=== PATIENT | female | born 1985 | race Caucasian/White ===

== ENCOUNTER 2019-12-28 09:39 | Emergency (ER) | payer OTHER, SELFPAY ==
--- NOTE | ~2019-12-28 | CT_ITS ---
EXAMINATION: CT abdomen pelvis wo con DATE: 12/28/2019 11:11 INDICATION: Vaginal pressure, hematuria TECHNIQUE: Computed tomography (CT) of the abdomen and pelvis was performed without intravenous contr ast. The dose-length product (DLP) was 692.59 mGy-cm. Automated exposure control and iterative recons truction technique were employed. COMPARISON: 06/13/2016 FINDINGS: The lung bases are clear. The heart size is normal. The liver, spleen, pancreas, gallbladde r, and adrenal glands are normal. There are stones measuring 3 mm and 2 mm in the right ureter at the ureterovesicular junction which causes mild right hydroureteronephrosis. Nonobstructing stones of th e right kidney measure up to 3 mm. There are punctate nonobstructing stones of the left kidney. No pa thologically enlarged abdominal or pelvic lymph nodes are identified. There is no free intraperitonea l gas or evidence of bowel obstruction. The appendix is normal. There are bilateral L5 pars defects w ith grade 1 anterolisthesis of L4 on L5. Small fat-containing umbilical hernia is noted. IMPRESSION: 1. Stones measuring up to 3 mm at the right ureterovesicular junction causing mild right hydrouretero nephrosis. 2. Bilateral nephrolithiasis. Reviewed, dictated and finalized at location A. NESS APPLICATIONS ANALYST IMPRESSION: 1. Stones measuring up to 3 mm at the right ureterovesicular junction causing m ild right hydroureteronephrosis. 2. Bilateral nephrolithiasis.
[2019-12-28 09:56] VITALS: BP 139/99; PULSE 96; RESP 16; TEMP 36.8; O2SAT 99
--- NOTE | 2019-12-28 10:15 | ED.FEMALEGU ---
HPI - Female Genitourinary General Chief complaint: Unspecified Stated complaint: pelvic pain/hematuria Time Seen by Provider: 12/28/19 09:57 Source: patient and RN notes reviewed Mode of arrival: ambulatory Limitations: no limitations History of Present Illness HPI Narrative: A 34 y/o female presents to the ED with constant pelvic pain for the past 4 days. She states that she just finished 12 days of abx 4 days ago for sinusitis. She reports associated middle lower back pain and diarrhea. She notes that yesterday she developed lower ABD pain and hematuria. She also notes that she has a hx of kidney stones but denies this feeling similar. She also denies any fevers, chills, nausea, or vomiting. MD elicited complaint: pelvic pain Onset (ago): day(s) (4) Location of symptoms: pelvis Consistency: constant Urinary symptoms: Hematuria Associated symptoms: abdominal pain (lower), back pain (middle lower) and other (diarrhea) Related Data Home Medications Medication Instructions Recorded Confirmed Allergy 12/28/19 meclizine 12/28/19 omeprazole 12/28/19 Allergies Allergy/AdvReac Type Severity Reaction Status Date / Time No Known Allergies Allergy Unverified 12/28/19 10:18 Review of Systems Review of Systems: All systems reviewed & are unremarkable except as noted in HPI and below Constitutional: Constitutional: Denies chills and Denies fever(s) Gastrointestinal: Gastrointestinal: Reports abdominal pain (lower), Reports diarrhea, Denies nausea and Denies vomiting Genitourinary: Genitourinary: Reports hematuria and Reports pelvic pain Musculoskeletal: Musculoskeletal: Reports back pain (middle lower) PMFSH Past Medical History Medical History (Updated 12/28/19 @ 12:50 by Roddy Crowell MD) Bilateral carpal tunnel syndrome History of kidney stones Surgical History Surgical History (Updated 12/28/19 @ 10:26 by Bradley Chew) History of bilateral carpal tunnel release History of cystoscopy History of lithotripsy x2. Social History Social History (Updated 12/28/19 @ 10:27 by Bradley Chew) Smoking status: Never smoker Gender identity (if verbalized by the patient): Female Exam Narrative: Exam Narrative: GENERAL: Well-appearing, well-nourished, and in no acute distress. HEAD: Normocephalic, atraumatic. ENT: Mucous membranes moist. CHEST: Clear to auscultation. No respiratory distress. HEART: Regular rate and rhythm. Normal peripheral pulses. ABDOMEN: Soft, nontender, nondistended, no CVA tenderness. Pelvic: Normal external genitalia, normal-appearing cervix without discharge or vaginal bleeding. EXTREMITIES: Normal range of motion. No edema. SKIN: Warm, dry, no rash. NEURO: Alert and oriented x3. Course Course Emergency Course: Patient informed of results. Pain improved with Toradol. Discharge home. Vital Signs Vital signs: Vital Signs Temperature 98.2 F 12/28/19 09:56 Pulse Rate 96 12/28/19 09:56 Respiratory Rate 16 12/28/19 09:56 Blood Pressure 139/99 H 12/28/19 09:56 Pulse Oximetry 99 12/28/19 09:56 Temperature 98.2 F 12/28/19 09:56 Pulse Rate 96 12/28/19 09:56 Respiratory Rate 16 12/28/19 09:56 Blood Pressure 139/99 H 12/28/19 09:56 Pulse Oximetry 99 12/28/19 09:56 MDM - Female Genitourinary Lab Data Labs: Lab Results 12/28/19 Range/Units 10:06 Urine Color Yellow (Yellow) Urine Appearance Cloudy H (Clear) Urine pH 6.0 (5.0-9.0) Ur Specific Birney 1.019 (1.001-1.035) Urine Protein 1+ H (Negative) mg/dL Urine Glucose (UA) Negative (Negative) mg/dL Urine Ketones Negative (Negative) mg/dL Ur Blood (Man) 3+ H (Negative) Urine Nitrate Negative (Negative) Urine Bilirubin Negative (Negative) Urine Urobilinogen Negative (<2.0) mg/dL Leukocyte Esterase Rfl Negative (Negative) FRANCA/UL Urine RBC >75 H (0-2) /hpf Urine WBC 7-9 H /hpf Ur Squamous Epith Cells Many H (Few) /hpf Hyaline Casts
[2019-12-28 10:20] LABS: Add Urine Microscopic? YES; Appearance Urine Cloudy (Clear); Bilirubin Urine Negative (Negative); Blood Urine 3+ (Negative); Color Urine Yellow (Yellow); Glucose Urine UA Negative (Negative); Ketones Urine Negative (Negative); Leukocyte Esterase Ur Negative LEU/UL (Negative); Mucus Urine Rare /lpf; Nitrate Urine Negative (Negative); Protein Urine 1+ mg/dL (Negative); RBC Urine >75 /hpf (0-2); Specific Grav Ur 1.019 (1.001-1.035); Squamous Epithelial Cell Urine Many /hpf (Few); Urobilinogen Urine Negative mg/dL (<2.0)
[2019-12-28] MEDS: KETOROLAC 30 MG/ML VIAL (*BKC) IV PUSH (11:47)
[2019-12-28 13:12] VITALS: BP 114/89; PULSE 88; RESP 18; O2SAT 100
== END 2019-12-28 13:22 | disposition home or self-care (01) ==
PROVIDERS: Emergency Provider Emergency Medicine; PCP Internal Medicine
DX: N13.2 Hydronephrosis with renal and ureteral calculous obstruction (principal); Z87.442 Personal history of urinary calculi
CPT/HCPCS: 74176; 81001; 81025; 87086; 96374; 99284; J1885

== ENCOUNTER 2020-04-09 18:04 | Emergency (ER) | payer OTHER, SELFPAY ==
--- NOTE | ~2020-04-09 | CT_ITS ---
EXAMINATION: CT abdomen pelvis wo con EXAM DATE: 04/09/2020 20:02 INDICATION: Right flank pain. TECHNIQUE: Spiral CT of the abdomen and pelvis was performed without contrast. Axial, coronal and sag ittal images were reviewed. The dose-length product (DLP) for this examination was 362.72 mGy-cm. T he exposure was tailored according to patient size (auto mA exposure control), and iterative reconstr uction (ASIR) was used as additional dose reduction technique. Comparison is made to prior examinatio n from 12/28/2019. FINDINGS: The couple of previously seen right distal ureteral stones have passed. No obstructive neph ropathy today. There are several right nephrolithiasis, largest measuring 3 mm. Single punctate left nephrolithiasis. The uterus is anteverted and morphologically normal. The bladder is unremarkable. The liver, spleen, adrenal glands and pancreas are unremarkable. Gallbladder is unremarkable. No b iliary obstruction. There is no retroperitoneal or pelvic lymphadenopathy. The appendix is normal. The stomach and small bowel are unremarkable. There is expected amount of c olonic stool. No free intraperitoneal gas. The heart is normal in size. There are no pericardial or pleural effusions. The lung bases are unremarkable. The bones are unremarkable. IMPRESSION: 1. Small bilateral nephrolithiasis. 2. No obstructive nephropathy or acute findings. Reviewed, dictated and finalized at location A.
[2020-04-09 18:15] VITALS: BP 132/86; PULSE 85; RESP 18; TEMP 36.8; O2SAT 100
[2020-04-09 18:37] LABS: Basophils Percent Auto 0.4 % (0.2-1.2); Eosinophils Absolute Auto 0.1 K/mm3 (0-0.3); Eosinophils Percent Auto 1.5 % (0-4.4); Hematocrit 42.4 % (37.0-47.0); Hemoglobin 13.8 g/dL (12.0-15.0); Immature Granulocyte Absolute 0.02 K/mm3 (0.00-0.031); Immature Granulocyte Percent A 0.3 % (0-0.5); Lymphocytes Absolute Auto 2.56 K/mm3 (0.9-3.2); Lymphocytes Percent Auto 37.2 % (18.3-44.2); Mean Corpuscular HGB Conc 32.5 g/dl (32-36); Mean Corpuscular Hemoglobin 27.9 pg (26-34); Mean Corpuscular Volume 85.7 fl (80-100); Mean Platelet Volume 10.8 fl (7.4-10.4); Monocytes Absolute Auto 0.4 K/mm3 (0.1-0.6); Monocytes Percent Auto 6.1 % (2.6-8.5); Neutrophils Absolute Auto 3.8 K/mm3 (1.3-6.7); Neutrophils Percent Auto 54.5 % (45.5-73.1); Platelet Count Result 221 k/mm3 (150-375); Red Blood Count 4.95 M/mm3 (4.2-5.4); Red Cell Distribution Width 13.2 % (11.5-14.5); White Blood Count 6.9 K/mm3 (4.5-10.0)
[2020-04-09 18:48] LABS: Blood Urea Nitrogen 14 mg/dL (7-17); Calcium 9.1 mg/dL (8.4-10.2); Carbon Dioxide 27 mmol/L (22-30); Chloride 104 mmol/L (98-107); Estimated CRCL calculation 76 ml/min; Estimated Glomerular Filt Rate > 60; Glucose 101 mg/dL (65-105); Potassium 3.6 mmol/L (3.4-5.0); Sodium 138 mmol/L (137-145)
[2020-04-09 18:54] VITALS: BP 125/103; PULSE 92; RESP 16; TEMP 36.9; O2SAT 99
--- NOTE | 2020-04-09 18:57 | ED.GENADULT ---
HPI - General Adult General Chief complaint: Abdominal Pain Stated complaint: R/O KIDNEY STONE Time Seen by Provider: 04/09/20 18:53 History of Present Illness HPI narrative: Patient is a 34 y/o female complaining of right groin pain radiating to right flank, right upper abdomen since yesterday. She rates her pain as 5/10. Pain is sharp. She has some burning with urination and noticed blood in urine. She denies any fever or vomiting. She has had kidney stone in the past. Related Data Home Medications Medication Instructions Recorded Confirmed meclizine 12/28/19 omeprazole 12/28/19 Allergies Allergy/AdvReac Type Severity Reaction Status Date / Time No Known Allergies Allergy Verified 04/09/20 18:18 Review of Systems Constitutional: Constitutional: Denies chills, Denies fever(s), Denies headache(s) and Denies weakness Eyes: Eyes: Denies blurry vision ENT: Denies headache(s) and Denies neck pain Cardiovascular: Cardiovascular: Denies chest pain and Denies dyspnea Respiratory: Respiratory: Denies cough and Denies dyspnea Gastrointestinal: Gastrointestinal: Denies abdominal pain, Denies diarrhea, Denies nausea and Denies vomiting Genitourinary: Genitourinary: Reports as per HPI, Reports hematuria, Reports dysuria and Reports flank pain Musculoskeletal: Musculoskeletal: Denies back pain and Denies neck pain Neurologic: Denies headache(s) and Denies weakness PMFSH Past Medical History Medical History Bilateral carpal tunnel syndrome History of kidney stones Surgical History Surgical History History of bilateral carpal tunnel release History of cystoscopy History of lithotripsy x2. Social History Social History Smoking status: Never smoker Gender identity (if verbalized by the patient): Female Exam Const: General: no acute distress and well developed Orientation/consciousness: oriented to person, oriented to place, oriented to time and patient oriented x3 HENMT: Head: normocephalic Ears: external ears normal General nose exam: Normal external nose present Eyes: General: appearance normal, both eyes and all related structures Conjunctivae: conjunctivae normal Neck: Neck: normal visual inspection and full ROM Chest: Chest palpation & inspection: normal inspection of the chest and no tenderness Resp: Effort & Inspection: normal respiratory effort Auscultation: clear to auscultation bilaterally Cardio: Rate: regular rate Rhythm: regular rhythm GI: GI Palp: No abdominal tenderness and Yes Soft to palpation Skin: General skin exam: normal color and turgor normal Neuro: General: oriented to person, oriented to place, oriented to time and patient oriented x3 Cognition (Neuro): normal cognition Extrem: General: normal to inspection, full ROM and no pedal edema Psych: Appearance: grossly normal Mental Status: mental status grossly normal Affect: normal affect Course Reevaluation(s) Reevaluation #1: Rechecked. Patient states that she feels better. Informed patient that CT did not show ureteral stone and that she may have passed a stone already. Offere pt Rx for pain, but she declined, stating that she already has pain meds at home from last kidney stone. Date: 04/09/20 Time: 21:30 Vital Signs Vital signs: Vital Signs Temperature 36.8 C 04/09/20 18:15 Pulse Rate 85 04/09/20 18:15 Respiratory Rate 18 04/09/20 18:15 Blood Pressure 132/86 04/09/20 18:15 Pulse Oximetry 100 04/09/20 18:15 Temperature 36.6 C 04/09/20 21:45 Pulse Rate 77 04/09/20 21:45 Respiratory Rate 16 04/09/20 21:45 Blood Pressure 127/92 H 04/09/20 21:45 Pulse Oximetry 100 04/09/20 21:45 Medical Decision Making Vital Signs Vital Signs: Vital Signs Temperature 36.8 C 04/09/20 18:15 Pulse Rate 85 04/09/20 18:1
[2020-04-09 19:11] LABS: Add Urine Microscopic? YES; Appearance Urine Clear (Clear); Bilirubin Urine Negative (Negative); Blood Urine 3+ (Negative); Color Urine Straw (Yellow); Glucose Urine UA Negative (Negative); Ketones Urine Negative (Negative); Leukocyte Esterase Ur Negative LEU/UL (Negative); Mucus Urine Rare /lpf; Nitrate Urine Negative (Negative); Protein Urine Negative (Negative); RBC Urine >75 /hpf (0-2); Specific Grav Ur 1.012 (1.001-1.035); Squamous Epithelial Cell Urine Moderate /hpf (Few); Urobilinogen Urine Negative mg/dL (<2.0); WBC Urine 0-3 /hpf
[2020-04-09] MEDS: KETOROLAC 30 MG/ML VIAL (*BKC) IV PUSH (20:24)
[2020-04-09] MEDS: ONDANSETRON INJ 4 MG/2 ML VIAL IV PUSH (20:24)
[2020-04-09 20:34] VITALS: BP 119/92; PULSE 81; RESP 16; TEMP 36.4; O2SAT 99
[2020-04-09 21:45] VITALS: BP 127/92; PULSE 77; RESP 16; TEMP 36.6; O2SAT 100
== END 2020-04-09 21:54 | disposition home or self-care (01) ==
PROVIDERS: Emergency Medicine; Emergency Provider Emergency Medicine; PCP Internal Medicine
DX: N20.0 Calculus of kidney (principal); Z87.442 Personal history of urinary calculi
CPT/HCPCS: 36415; 74176; 80048; 81001; 81025; 85025; 96374; 96375; 99284; J1885; J2405

== ENCOUNTER 2021-05-24 10:16 | Emergency (ER) | payer OTHER, SELFPAY ==
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
[2021-05-24 10:27] VITALS: BP 128/82; PULSE 84; RESP 16; TEMP 35.8; O2SAT 99
[2021-05-24 10:30] VITALS: BP 128/82; PULSE 84; RESP 16; TEMP 35.8; O2SAT 99
== END 2021-05-24 11:27 | disposition home or self-care (01) ==
PROVIDERS: Emergency Provider Nurse Practitioner; PCP Internal Medicine
DX: S93.602A Unspecified sprain of left foot, initial encounter (principal); X50.9XXA Other and unspecified overexertion or strenuous movements or postures, initial encounter
CPT/HCPCS: 73630; 99213; G0463

== ENCOUNTER → 2021-08-15 07:50 | Outpatient (CLI) | payer OTHER, SELFPAY ==
--- NOTE | ~2021-08-15 | XR_ITS ---
EXAMINATION: XR abdomen/kub 1V EXAM DATE: 08/15/2021 08:43 INDICATION: Calcium kidney stone. TECHNIQUE: Frontal projection of the upper abdomen, frontal projection lower abdomen/pelvis for inter pretation. There is no prior study for comparison. FINDINGS: There is expected amount of colonic stool and gas. No small bowel dilation, nonobstructiv e bowel gas pattern. There are no suspicious calcifications identified. There is no organomegaly suspected. The bones are unremarkable. IMPRESSION: Unremarkable abdomen x-ray exam. Reviewed, dictated and finalized at location A.
== END ==
PROVIDERS: Visit Provider Urology
DX: N20.0 Calculus of kidney (principal)
CPT/HCPCS: 74018

== ENCOUNTER 2022-04-05 21:47 | Emergency (ER) | payer OTHER, SELFPAY ==
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
--- NOTE | ~2022-04-05 | XR_ITS ---
EXAMINATION: XR hip LT 2V w AP pelvis INDICATION: Left hip pain TECHNIQUE: AP view the pelvis and two views left hip are obtained. COMPARISON: None available FINDINGS: There is no fracture, dislocation, or subluxation. The bones, soft tissues, and joint space s are normal. IMPRESSION: 1. No acute osseous abnormality. Reviewed, dictated and finalized at location A.
[2022-04-05 21:50] VITALS: BP 145/84; PULSE 96; RESP 18; TEMP 36.2; O2SAT 100
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
[2022-04-05 23:20] LABS: Basophils Percent Auto 0.5 % (0.2-1.2); Eosinophils Absolute Auto 0.1 K/mm3 (0-0.3); Eosinophils Percent Auto 1.3 % (0-4.4); Hematocrit 36.3 % (37.0-47.0); Hemoglobin 11.6 g/dL (12.0-15.0); Immature Granulocyte Absolute 0.03 K/mm3 (0.00-0.031); Immature Granulocyte Percent A 0.4 % (0-0.5); Lymphocytes Absolute Auto 2.17 K/mm3 (0.9-3.2); Lymphocytes Percent Auto 27.5 % (18.3-44.2); Mean Corpuscular Hemoglobin 26.9 pg (26-34); Mean Platelet Volume 10.5 fl (7.4-10.4); Monocytes Absolute Auto 0.5 K/mm3 (0.1-0.6); Monocytes Percent Auto 6.8 % (2.6-8.5); Neutrophils Percent Auto 63.5 % (45.5-73.1); Platelet Count Result 220 k/mm3 (150-375); Red Blood Count 4.32 M/mm3 (4.2-5.4); Red Cell Distribution Width 14.8 % (11.5-14.5); White Blood Count 7.9 K/mm3 (4.5-10.0)
[2022-04-05 23:25] LABS: Appearance Urine Clear (Clear); Bilirubin Urine Negative (Negative); Color Urine Yellow (Yellow); Glucose Urine UA Negative (Negative); Ketones Urine Trace mg/dL (Negative); Leukocyte Esterase Ur Trace LEU/UL (Negative); Nitrate Urine Negative (Negative); Protein Urine Negative (Negative); Specific Grav Ur >= 1.030 (1.001-1.035); Urobilinogen Urine 0.2 mg/dL (<2.0); pH Urine 5.5 (5.0-9.0)
[2022-04-05 23:29] LABS: Alanine Aminotransferase 16 U/L (6-35); Albumin Level 4.2 g/dL (3.5-5.1); Alkaline Phosphatase 64 U/L (38-126); Anion Gap 7 mmol/L (8-16); Aspartate Amino Transferase 25 U/L (14-36); Bilirubin,Total < 0.1 mg/dL (0.2-1.3); Blood Urea Nitrogen 12 mg/dL (7-17); Calcium 8.9 mg/dL (8.4-10.2); Carbon Dioxide 25 mmol/L (22-30); Chloride 106 mmol/L (98-107); Estimated CRCL calculation 70 ml/min; Estimated Glomerular Filt Rate > 60; Glucose 124 mg/dL (65-110); Potassium 4.1 mmol/L (3.4-5.0); Sodium 138 mmol/L (137-145)
[2022-04-05 23:30] LABS: Bacteria Urine Trace /hpf; Mucus Urine Rare /lpf; Squamous Epithelial Cell Urine Few /hpf (Few)
[2022-04-05 23:40] LABS: Add Urine Microscopic? YES; Blood Urine Trace (Negative)
[2022-04-05] MEDS: KETOROLAC 30 MG/ML VIAL (*BKC) IV PUSH (23:46)
[2022-04-05] MEDS: CYCLOBENZAPRINE HCL 10 MG TABLET PO (23:46)
[2022-04-06] MEDS: LACTATED RINGERS 1,000 ML 999 ML IV CONT (00:54)
[2022-04-06 03:22] VITALS: BP 113/77; PULSE 88; RESP 18; O2SAT 98
== END 2022-04-06 03:23 | disposition home or self-care (01) ==
PROVIDERS: Emergency Provider General Practice; PCP Internal Medicine
DX: S39.012A Strain of muscle, fascia and tendon of lower back, initial encounter (principal); K80.20 Calculus of gallbladder without cholecystitis without obstruction; S79.912A Unspecified injury of left hip, initial encounter; R10.32 Left lower quadrant pain; Z87.442 Personal history of urinary calculi; V40.6XXA Car passenger injured in collision with pedestrian or animal in traffic accident, initial encounter
CPT/HCPCS: 36415; 73502; 74177; 80053; 81001; 81025; 85025; 96361; 96365; 96374; 99284; A9270; J0131; J1885; J7120; Q9967

== ENCOUNTER → 2022-04-29 08:14 | Outpatient (CLI) | payer OTHER, SELFPAY ==
--- NOTE | ~2022-04-29 | XR_ITS ---
XR abdomen/kub 1V DATE: 04/29/2022 08:25 INDICATION: Calcium kidney stone TECHNIQUE: AP projection, 2 views COMPARISON: 04/06/2022 CT abdomen pelvis with IV contrast material FINDINGS: Approximately 4 lower pole right renal calcified calculus, corresponding to calculus demons trated on 02/04/2022 CT abdomen pelvis examination. No visceromegaly is evident. There is no evidence of bowel obstruction. Included skeletal structures are unremarkable. IMPRESSION: Approximately 4 mm nonobstructing lower pole right renal calculus Reviewed, dictated and finalized at Location A. Reviewed, dictated and finalized at location B.
== END ==
PROVIDERS: PCP Internal Medicine; Visit Provider Nurse Practitioner
DX: N20.0 Calculus of kidney (principal)
CPT/HCPCS: 74018

== ENCOUNTER → 2022-06-20 15:54 | Outpatient (CLI) | payer OTHER, SELFPAY ==
--- NOTE | ~2022-06-20 | XR_ITS ---
EXAMINATION: XR abdomen/kub 1V DATE: 06/20/2022 16:06 INDICATION: Calcium kidney stone. TECHNIQUE: A supine view of the abdomen on 2 radiographs was obtained. COMPARISON: CT abdomen and pelvis 04/06/2022 FINDINGS: There are no dilated loops of bowel. There is a 4 mm stone in right kidney lower pole. Ther e are phleboliths in the pelvis. IMPRESSION: 1. 4 mm stone in right kidney lower pole. Reviewed, dictated and finalized at location A.
== END ==
PROVIDERS: PCP Internal Medicine; Visit Provider Urology
DX: N20.0 Calculus of kidney (principal)
CPT/HCPCS: 74018

== ENCOUNTER → 2022-08-04 13:18 | Outpatient (CLI) | payer OTHER, SELFPAY ==
--- NOTE | ~2022-08-04 | XR_ITS ---
XR abdomen/kub 1V 08/04/2022 13:27 INDICATION: Renal stones TECHNIQUE: KUB COMPARISON: 06/20/2022 FINDINGS: Bowel gas pattern is normal. There are cholecystectomy clips. There is no evidence of free air, mass, organomegaly, ascites or obstruction. No abnormal calculi are seen. The bones appear int act. IMPRESSION: 1: No acute abdominal abnormality identified. Reviewed, dictated and finalized at location A.
== END ==
PROVIDERS: PCP Internal Medicine; Visit Provider Urology
DX: N20.0 Calculus of kidney (principal)
CPT/HCPCS: 74018

== ENCOUNTER → 2023-02-02 10:38 | Outpatient (CLI) | payer OTHER, SELFPAY ==
--- NOTE | ~2023-02-02 | XR_ITS ---
EXAM: XR abdomen/kub 1V DATE: 02/02/2023 10:50 HISTORY: HX OF KIDNEY STONES NO CURRENT PAIN F/U . COMPARISON: 06/20/2022, CT abdomen pelvis 04/06/2022. FINDINGS: Clear lung bases. Cholecystectomy clips. Normal bowel gas pattern. No organomegaly. Pelvic phleboliths. Regional bones and soft tissues normal for age. IMPRESSION: Previously detected renal stones not confidently identified, may indicate interval passag e or unreliable radiographic visibility. Reviewed, dictated and finalized at location K. IMPRESSION: Previously detected renal stones not confidently identified, may in dicate interval passage or unreliable radiographic visibility.
== END ==
PROVIDERS: PCP Internal Medicine; Visit Provider Urology
DX: N20.0 Calculus of kidney (principal)
CPT/HCPCS: 74018

== ENCOUNTER → 2023-04-22 11:43 | Outpatient (CLI) | payer OTHER, SELFPAY ==
--- NOTE | ~2023-04-22 | XR_ITS ---
XR abdomen/kub 1V 04/22/2023 12:04 INDICATION: Flank pain TECHNIQUE: KUB COMPARISON: 02/02/2023 FINDINGS: Bowel gas pattern is normal. Moderate colonic fecal loading. There are cholecystectomy clip s. There is no evidence of free air, mass, organomegaly, ascites or obstruction. No abnormal calculi are seen. The bones appear intact. IMPRESSION: 1: No acute abdominal abnormality identified. Reviewed, dictated and finalized at location []
== END ==
PROVIDERS: PCP Urology; Visit Provider Urology
DX: N20.0 Calculus of kidney (principal)
CPT/HCPCS: 74018

== ENCOUNTER → 2023-10-16 08:03 | Outpatient (CLI) | payer OTHER, SELFPAY ==
--- NOTE | ~2023-10-16 | XR_ITS ---
EXAMINATION: XR abdomen/kub 1V DATE: 10/16/2023 08:31 INDICATION: Calcium kidney stones. TECHNIQUE: A supine view of the abdomen on 2 radiographs was obtained. COMPARISON: CT abdomen and pelvis 04/06/2022 FINDINGS: There are no dilated loops of bowel. There is a moderate volume of stool in the colon. Surg ical clips in the right upper quadrant are likely from cholecystectomy. There are phleboliths in the pelvis. IMPRESSION: 1. No visible urolithiasis. Reviewed, dictated and finalized at location A. ICAL LAB TECHNICIAN IMPRESSION: 1. No visible urolithiasis.
== END ==
PROVIDERS: PCP Urology; Visit Provider Urology
DX: N20.0 Calculus of kidney (principal)
CPT/HCPCS: 74018

== ENCOUNTER 2024-04-11 11:46 | Outpatient (CLI) | payer OTHER, SELFPAY ==
--- NOTE | ~2024-04-11 | XR_ITS ---
Supine and upright views of the abdomen Clinical history: Kidney stone COMPARISON: 10/16/2023 Findings: Bowel gas pattern is nonspecific. No evidence for obstruction or free air. No abnormal mass lesion or calcification is seen. Cholecystectomy clips are present. Osseous structures are intact. Impression: No kidney stone identified. Reviewed, dictated and finalized at [facility]. Impression: No kidney stone identified.
== END 2024-04-11 11:47 ==
PROVIDERS: PCP Urology; Visit Provider Urology
DX: N20.0 Calculus of kidney (principal)
CPT/HCPCS: 74018

== ENCOUNTER 2025-04-11 08:00 | Outpatient (CLI) | payer OTHER, SELFPAY ==
--- NOTE | ~2025-04-11 | XR_ITS ---
Supine and upright views of the abdomen Clinical history: Kidney stone COMPARISON: 04/11/2024 Findings: Bowel gas pattern is nonspecific. No evidence for obstruction or free air. No abnormal mass lesion or calcification is seen. Osseous structures are intact. Impression: No significant abnormality is seen. Reviewed, dictated and finalized at [facility]. Impression: No significant abnormality is seen.
== END 2025-04-11 08:01 | disposition home or self-care (01) ==
PROVIDERS: PCP Urology; Visit Provider Urology
DX: N20.0 Calculus of kidney (principal)
CPT/HCPCS: 74018